=== PATIENT | female | born 1985 | race Caucasian/White ===

== ENCOUNTER 2017-12-24 20:20 | Inpatient (IN) | END 2017-12-28 19:00 | disposition home or self-care (01) | DRG 775 ==

== ENCOUNTER 2019-05-17 17:28 | Emergency (ER) | payer OTHER ==
[~2019-05-17] VITALS: Ht 165.1 cm; Wt 56.2 kg
[~2019-05-17 17:28] MED LIST: CEPH-443 PO; IBUP-1542 PO; PNV11TAB PO
[2019-05-17 17:33] VITALS: BP 101/68; PULSE 96; RESP 16; Ht 165.1 cm; Wt 56.2 kg
== END 2019-05-17 19:16 | disposition home or self-care (01) ==
LOC: FTE 17:28
DX: N34.2 Other urethritis (principal); J45.909 Unspecified asthma, uncomplicated
CPT/HCPCS: 81003; 81025; 87591; J0696; Z7610; 96372